=== PATIENT | female | born 1930 | race Caucasian/White ===

== ENCOUNTER 2020-10-02 15:25 | Inpatient (IN) | payer BC, MEDICARE ==
[2020-10-02] VITALS (9 sets, daily range): BP systolic 111–167; BP diastolic 63–100
[~2020-10-02] VITALS: Ht 167.6 cm; Wt 57.2 kg
[2020-10-02] MEDS ORDERED: DILTIAZEM HCL 25 MG IV IV ONE (16:00)
[2020-10-02 16:02] LABS: CREATININE 0.7 mg/dL (0.6-1.3); POTASSIUM 4.3 mmol/L (3.5-5.1)
[2020-10-02 16:12] LABS: BASOPHILS % (AUTO) 0.4 % (0.0-2.0); EOSINOPHILS # (AUTO) 0.1 K/uL (0.0-0.7); EOSINOPHILS % (AUTO) 0.9 % (0.0-7.0); HEMATOCRIT 45.3 % (31.2-41.9); LYMPHOCYTES # (AUTO) 2.1 K/uL (20.0-40.0); LYMPHOCYTES % (AUTO) 22.9 % (20.5-51.5); MEAN CORPUSCULAR HEMOGLOBIN 29.8 uug (24.7-32.8); MEAN CORPUSCULAR HGB CONC 33 g/dL (32.3-35.6); MEAN CORPUSCULAR VOLUME 89.8 fL (75.5-95.3); MONOCYTES # (AUTO) 0.8 K/uL (2.0-10.0); MONOCYTES % (AUTO) 8.2 % (0.0-11.0); NEUTROPHILS # (AUTO) 6.2 K/uL (1.8-8.9); NEUTROPHILS % (AUTO) 67.6 % (38.5-71.5); PLATELET COUNT (AUTO) 251 K/uL (179-408); RED BLOOD CELL COUNT(AUTO) 5.05 MIL/uL (3.63-4.92); WHITE BLOOD COUNT (AUTO) 9.2 K/uL (3.8-11.8)
[2020-10-02 16:16] LABS: BILIRUBIN,DIRECT 0.1 mg/dL (0.0-0.2); BILIRUBIN,TOTAL 0.3 mg/dL (0.2-1.0); TOTAL PROTEIN, SERUM 7.4 g/dL (6.4-8.2)
[2020-10-02] MEDS ORDERED: DILTIAZEM HCL 25 MG IV ONE (16:16)
[2020-10-02] MEDS ORDERED: METO-357 PO (16:26)
[2020-10-02] MEDS ORDERED: APIX2.5T PO (16:26)
--- NOTE | 2020-10-02 16:45 | NUR ---
Pt resting with NAD noted.
--- NOTE | 2020-10-02 17:30 | NUR ---
Per pt to be admitted to tele. Tele floor called for bed assignment, pt resting with NAD noted.
--- NOTE | 2020-10-02 19:50 | NUR ---
Received patient from ER via [facility]. 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 Patient is A/O x4 and very pleasant. Patient was able to walk from [place] to the bed with assistance. Patient did however complain of pain in her left hip due to a fall she suffered 1 month ago. This fall was not reported to the ER physician, not did she report the fall to her primary physician when it occurred. Patient hooked up to the monitor, showing atrial fibrillation irregular rate of 80s-90s. BP stable 127/63 respirations 20, SpO2 97% on room air. Patient also has an extensive surgical history not previously reported including total Left hip replacement, total left knee replacement, hysterectomy, and appendectomy. Skin currently clear and unremarkable, save for old healed surgical scars from mentioned procedures. Patient provided with the call light and TV remote. Will continue to monitor.
--- NOTE | 2020-10-02 19:52 | NUR ---
Transfered to 2nd floor CCU as Tele-TD overflow in Bed 2 via [place] with no distress noted.
--- NOTE | 2020-10-02 20:10 | NUR ---
Spoke with Dr. Duarte in regard to the fall and continuing left hip pain the patient reported on admission. Ordered STAT left hip XR.
[2020-10-02] MEDS ORDERED: TEMAZEPAM 15 MG CAPSULE PO PRN (20:30)
[2020-10-02] MEDS ORDERED: DILTIAZEM HCL IV 125 MG in IV NORMAL SALINE 100 ML IV PRN ×2 (20:30→23:00)
[2020-10-02] MEDS ORDERED: MORPHINE SULFATE 2 MG/1 ML DISP.SYRIN IV PRN (20:30)
[2020-10-02] MEDS ORDERED: MAGNESIUM HYDROXIDE 30 ML LIQUID UDC PO PRN (20:30)
[2020-10-02] MEDS ORDERED: ACETAMINOPHEN 325 MG TABLET PO PRN (20:30)
[2020-10-02] MEDS ORDERED: ONDANSETRON 4 MG/2 ML VIAL IV PRN (20:30)
[2020-10-02] MEDS ORDERED: APIXABAN 5 MG TABLET PO SCH (21:00)
[2020-10-02] MEDS ORDERED: DOCUSATE SODIUM 100 MG CAPSULE PO SCH (21:00)
[2020-10-03] VITALS (21 sets, daily range): BP systolic 106–138; BP diastolic 49–98
[2020-10-03 05:07] LABS: BASOPHILS % (AUTO) 0.4 % (0.0-2.0); EOSINOPHILS # (AUTO) 0.2 K/uL (0.0-0.7); EOSINOPHILS % (AUTO) 1.9 % (0.0-7.0); HEMATOCRIT 42.7 % (31.2-41.9); LYMPHOCYTES # (AUTO) 2.3 K/uL (20.0-40.0); LYMPHOCYTES % (AUTO) 27.6 % (20.5-51.5); MEAN CORPUSCULAR HEMOGLOBIN 29.3 uug (24.7-32.8); MEAN CORPUSCULAR HGB CONC 33 g/dL (32.3-35.6); MEAN CORPUSCULAR VOLUME 89.3 fL (75.5-95.3); MONOCYTES # (AUTO) 0.8 K/uL (2.0-10.0); MONOCYTES % (AUTO) 9.9 % (0.0-11.0); NEUTROPHILS % (AUTO) 60.2 % (38.5-71.5); PLATELET COUNT (AUTO) 204 K/uL (179-408); RED BLOOD CELL COUNT(AUTO) 4.78 MIL/uL (3.63-4.92); WHITE BLOOD COUNT (AUTO) 8.3 K/uL (3.8-11.8)
[2020-10-03 05:19] LABS: ALANINE AMINOTRANSFERASE 11 U/L (14-59); ALKALINE PHOSPHATASE 94 U/L (50-136); ASPARTATE AMINOTRANSFERASE 15 U/L (15-37); BILIRUBIN,TOTAL 0.7 mg/dL (0.2-1.0); CARBON DIOXIDE 29 mmol/L (21-32); CHLORIDE 107 mmol/L (98-107); CHOLESTEROL 153 mg/dL (<200); CREATININE 0.6 mg/dL (0.6-1.3); GLUCOSE 101 mg/dL (74-106); HDL CHOLESTEROL 47 mg/dL (40-60); MAGNESIUM 1.9 mg/dL (1.8-2.4); PHOSPHOROUS 3.7 mg/dL (2.5-4.9); POTASSIUM 4.1 mmol/L (3.5-5.1); TOTAL PROTEIN, SERUM 6.4 g/dL (6.4-8.2); TRIGLYCERIDES 71 MG/DL (30-150); UREA NITROGEN, BLOOD 12 mg/dL (7-18)
[2020-10-03 05:26] LABS: THYROID STIMULATING HORMONE < 0.007 mIU/mL (0.358-3.740)
[2020-10-03] MEDS ORDERED: PANTOPRAZOLE SODIUM 40 MG TABLET.DR PO SCH (07:00)
--- NOTE | 2020-10-03 07:30 | NUR ---
received pt in bed awake, alert and able to make needs known. pt is A&Ox4. pt currently on room air. pt remains afib on the monitor with controlled HR 70s to 80s. per pt, shes usually in Afib. pt uses bedside commode with assistance.
--- NOTE | 2020-10-03 07:55 | NUR ---
Cardio Dr. Carroll in the unit to see and assess pt. full report given. per , switch IV Dillon sidhu to KAVYA Carranza
[2020-10-03] MEDS ORDERED: DILTIAZEM HCL CD 180 MG CAP.SR.24H PO SCH (09:00)
[2020-10-03] MEDS ORDERED: APIXABAN 5 MG TABLET PO SCH (09:00)
[2020-10-03] MEDS ORDERED: APIXABAN 2.5 MG TABLET PO SCH (09:00)
--- NOTE | 2020-10-03 11:55 | NUR ---
lunch tray given to pt. helped with setting up tray but pt able to eat by herself. pt stated she does not eat meat. asked pt if its a specific kind of meat she doesnt eat and if she eats fish and per pt, she used to eat fish but lately she hasn't and prefers not to eat any kind of meat. asked pt if she wanted kitchen to stop serving her meat and she said yes. however she is okay with tuna sandwich. dietary informed
--- NOTE | 2020-10-03 13:30 | NUR ---
Dr. Micah Shea in the unit to see and assess pt. per MD, pt is okay to be discharged home as pt has been cleared by Cardio Dr. Carroll. order for discharge received. pt in stable condition
[2020-10-03] MEDS ORDERED: DILT180C66 PO (14:24)
--- NOTE | 2020-10-03 14:34 | NUR ---
pt educated on all discharge instructions. pt alert & oriented and verbalized understanding. copy of discharge instructions given to pt. pt in stable condition, ambulatory. peripheral IV line removed. VSS. sent with all belongings. pt's pharmacy Dr. [facility] called regarding pt's prescription order for Eliquis 2.5mg PO BID and Diltiazem 180mg PO daily per pt request so they can deliver to her house. order placed with pharmacist. pt will be picked up by her friend Barbara.
--- NOTE | 2020-10-03 14:57 | NUR ---
pt assisted downstairs via wheelchair and ambulated to car. pt picked up by her friend Barbara. left with all belongings. left in stable condition
== END 2020-10-03 14:59 | disposition home or self-care (01) | DRG 309 ==
LOC: ER 15:25 → OBSER 19:20 → CCU 20:02
PROVIDERS: ADMIT Internal Medicine
DX: I48.91 Unspecified atrial fibrillation (principal); D68.59 Other primary thrombophilia; E05.90 Thyrotoxicosis, unspecified without thyrotoxic crisis or storm; I10 Essential (primary) hypertension; I48.20 Chronic atrial fibrillation, unspecified; Z20.822 Contact with and (suspected) exposure to COVID-19; J45.909 Unspecified asthma, uncomplicated; Z79.01 Long term (current) use of anticoagulants; Z90.710 Acquired absence of both cervix and uterus; Z96.652 Presence of left artificial knee joint; Z96.642 Presence of left artificial hip joint; M19.90 Unspecified osteoarthritis, unspecified site; Z74.09 Other reduced mobility
CPT/HCPCS: 36415; 70030-TC; 71045; 73501; 83735; 84100; 84443; 85025; 85730; 93005; 93307; A4663; G0378; J3490